=== PATIENT | male | born 1965 | race Caucasian/White ===

== ENCOUNTER → 2021-07-07 10:38 | Outpatient (CLI) | payer MEDICARE, MEDICAID, SELFPAY ==
[2021-07-07 11:08] LABS: COVID19 -Nasal RAPID Negative (Negative)
== END ==
PROVIDERS: PCP Urology; Visit Provider Urology
DX: Z20.822 Contact with and (suspected) exposure to COVID-19 (principal)
CPT/HCPCS: 87635; C9803

== ENCOUNTER → 2021-07-21 15:16 | Outpatient (CLI) | payer MEDICARE, MEDICAID, OTHER, SELFPAY ==
[2021-07-21 16:29] LABS: COVID19 -Nasal RAPID Negative (Negative)
== END ==
PROVIDERS: Visit Provider Urology
DX: N43.41 Spermatocele of epididymis, single (principal); N50.82 Scrotal pain; R73.03 Prediabetes; F41.9 Anxiety disorder, unspecified; Z20.822 Contact with and (suspected) exposure to COVID-19; Z79.01 Long term (current) use of anticoagulants; Z95.0 Presence of cardiac pacemaker
CPT/HCPCS: 81002; 87635; 99214; C9803

== ENCOUNTER 2021-07-24 07:38 | Day surgery (SDC) | payer MEDICARE, MEDICAID, OTHER, SELFPAY ==
[2021-07-10 10:56] VITALS: BMI 19.0
--- NOTE | 2021-07-24 | PATH_ITS ---
[facility] Accession Number: [id number] . 01 Material submitted: . body - LEFT SPERMATOCELE SAC . 02 Diagnosis: Left Spermatocele Sac, Excision: Consistent with spermatocele. No evidence of neoplasm. [facility] 07/30/2021 1609 Local . 02 Electronically signed: . Joesph Beltran MD, PhD, Pathologist NPI- [id number] . 01 Gross description: . Received in formalin labeled with the patient's name and additionally labeled left spermatocele sac is a pale menezes gossamer simple cystic structure measuring 1.4 x 1.1 x 0.7 cm with a single suture sealing the clear serous cystic contents. The suture is trimmed away, and the clear serous fluid drains away leaving a smooth lined cyst with no areas of thickening or papillary excrescences. The specimen is entirely submitted in cassette A1. ([id number]) /[facility] 07/29/2021 1629 Local . 02 Pathologist provided ICD-10: N43.41 . 02 CPT . 641474 Specimen Comment: A courtesy copy of this report has been sent to [phone] Performed at: 01 [facility] [address] [facility], [place], [place] [id number] MD Donnell Hutchison MD Phone: [phone] Performed at: 02 [facility] [id number] [facility] [address] [place], [place] [id number] MD Kaitlin Cerna MD Phone: [phone]
[2021-07-24 08:01] VITALS: BP 104/58; PULSE 60; RESP 15; TEMP 36.1; O2SAT 100; BMI 19.0
[2021-07-24] MEDS: LACTATED RINGERS 1,000 ML 42 ML IV ×2 (08:17→09:48)
[2021-07-24 08:21] VITALS: BMI 19.0
--- NOTE | 2021-07-24 08:39 | SUR.OPER ---
Supine on padded OR bed, head on pillow, arms secured on padded arm boards at <90 degrees abduction, legs uncrossed, safety belt at thigh, tape over blanket over lower legs.
--- NOTE | 2021-07-24 08:48 | PM.PREOP ---
Pre-operative Note COVID-19 COVID-19 status: Negative Result date/Date tested (Pos, Neg/Pending): 07/21/21 Criteria for continued procedure: Expected advancement of disease process, Continuing or worsening of significant or severe pain and Non-surgical alternatives not available or appropriate per current SOC Interval Note History & Physical reviewed/Exam performed by Physician: Yes Changes to H&P: No
[2021-07-24] MEDS: CEFAZOLIN 2 GM/20 ML SYRINGE IV (08:58)
[2021-07-24] MEDS: BACITRACIN 28 GM OINT 1 APPLIC TOP (09:29)
[2021-07-24] MEDS: BUPIVACAINE 0.5% (PF) VIAL 30 ML INJ (09:34)
--- NOTE | 2021-07-24 09:55 | P.OP_ITS ---
Procedure & Clinicians Procedure: Left spermatocelectomy Same procedure as scheduled: Yes Indications: This is a 55-year-old male who presented with complaints of left hemiscrotal pain and nodule. Evaluation with ultrasound has revealed this to be a spermatocele. Patient comes wishing to have it removed an understanding that this may not eliminate his pain. Surgeon: Alonso Razo Click Yes if Unassisted: Yes Anesthesia Type: General Operative Notes Findings: Normal scrotum, normal penis, normal testicle left side. Clear gandara sized cyst consistent with spermatocele noted in the globus major of the epididymis. No other abnormality was noted. Closure Type: primary Specimen(s): other (Spermatocele sac) Prosthetic devices, grafts, tissues, transplants, or devices: None Estimated Blood Loss (mL): 5 Blood products transfused: none Procedure in detail: After informed consent was obtained, the patient was identified and brought to the operating room. The patient was placed in a supine position on the table where anesthesia was induced and maintained. Ensuring an adequate level of anesthesia the patient was shaved, prepped, draped and prepared in a sterile fashion for left spermatocelectomy. After time-out and ensuring an appropriate amount of anesthesia the procedure was begun. Transverse incision was made in the left mid hemiscrotum carried down through the layers of the dartos and with this the testicle was delivered. The tunica vaginalis was entered and the small amount of hydrocele fluid was removed. The testis was delivered. The fascia investing an overlying the spermatocele was incised with sharp and electric cautery and the spermatocele was dissected free. This dissection was carried d own to its base and or connection to the epididymis. This was ligated with a 2- 0 Vicryl and the spermatocele was removed. The cord was infiltrated with 0.25% Marcaine plain points of bleeding were controlled with electrocautery. The testicle was returned to the tunica vaginalis and the tunica vaginalis was closed and reapproximated with a running 3-0 chromic. The testicle and investing fascia is were returned to the scrotum. The wound was once again irrigated and the dartos was reapproximated with a running 2-0 chromic. Skin edges were reapproximated with interrupted vertical mattress of 2-0 chromic. The skin was infiltrated with 0.25% Marcaine plain bacitracin Telfa fluffs were applied scrotal support was applied. Patient was awakened taken to the postanesthesia care unit having tolerated the procedure well. Patient will be discharged to the postanesthesia care unit to home to follow up my office in approximately 10 days. There were no complications Complications: none Post-operative Condition: stable Disposition: PACU Plan for aftercare: Patient will be discharged home to follow up my office in approximately 10 days.
[2021-07-24 09:58] VITALS: BP 104/69; PULSE 60; RESP 12; TEMP 36.7; O2SAT 98
[2021-07-24 10:07] VITALS: BP 109/57; PULSE 60; RESP 13; O2SAT 100
[2021-07-24 10:12] VITALS: BP 116/72; PULSE 60; RESP 14; TEMP 36.4; O2SAT 98
[2021-07-24] MEDS: HYDROCODONE/ACET 5/325 TABLET 1 TAB PO (10:33)
[2021-07-24 10:48] VITALS: BP 118/73; PULSE 60; RESP 15; TEMP 36.6; O2SAT 100
[2021-07-24 11:30] VITALS: BP 107/60; PULSE 60; RESP 18; TEMP 36.1; O2SAT 98
--- NOTE | 2021-07-24 11:48 | SUR.PHASEII ---
Assumed care from Carla, on her way, pt ready to go. jockstrap and dressings c/d/i. ice to area. d/c instructions discussed with pt and his by Carla, both voiced an understanding.
== END 2021-07-24 11:30 | disposition home or self-care (01) ==
PROVIDERS: Referring Provider Urology; Visit Provider Urology
PROC: (CPT 54840; principal; 2021-07-24 09:15)
DX: N43.41 Spermatocele of epididymis, single (principal); Z79.01 Long term (current) use of anticoagulants; Z95.0 Presence of cardiac pacemaker; F41.9 Anxiety disorder, unspecified; R73.03 Prediabetes; I25.10 Atherosclerotic heart disease of native coronary artery without angina pectoris; I10 Essential (primary) hypertension; E78.5 Hyperlipidemia, unspecified
CPT/HCPCS: 54840; 85610; J0690; J1100; J2250; J2405; J2704; J3010